=== PATIENT | female | born 1955 | race Caucasian/White ===

== ENCOUNTER 2024-04-10 07:18 | Day surgery (SDC) | payer OTHER ==
[2024-04-07 11:01] VITALS: BMI 32.3
[2024-04-10] MEDS ORDERED: VANCOMYCIN 1,000 MG VIAL (RESTRICTED TO ID ONLY) ONE ×2 (08:00→09:59)
[2024-04-10] MEDS ORDERED: TRANEXAMIC ACID 1000 MG/10 ML VIAL ONE ×2 (08:00→09:59)
[2024-04-10] MEDS ORDERED: MIDAZOLAM HCL 2 MG/2 ML SINGLE DOSE VIAL ONE (08:31)
[2024-04-10] MEDS ORDERED: DEXAMETHASONE SOD PHOSPHATE 10 MG/1 ML VIAL ONE (09:08)
[2024-04-10] MEDS ORDERED: ROPIVACAINE HCL/PF 100 MG/20 ML VIAL ONE (09:08)
[2024-04-10] MEDS ORDERED: CLINDAMYCIN 900 MG PREMIX IVPB 900 MG/50 ML BAG IVPB ONE (09:14)
[2024-04-10] MEDS ORDERED: PROPOFOL 20 ML ONE ×4 (09:34→11:10)
[2024-04-10] MEDS ORDERED: PHENYLEPHRINE HCL 10 MG/1 ML SINGLE DOSE VIAL ONE (09:59)
[2024-04-10] MEDS ORDERED: ONDANSETRON 4 MG/2 ML VIAL ONE (09:59)
[2024-04-10] MEDS: VANCOMYCIN 1,000 MG VIAL (RESTRICTED TO ID ONLY) IVPB ONE (11:00)
[2024-04-10] MEDS ORDERED: ONDANSETRON 4 MG/2 ML VIAL IVPUSH PRN ×2 (11:49→12:15)
[2024-04-10] MEDS: ACETAMINOPHEN 1000 MG/100 ML BAG IVPB ONE (12:05)
[2024-04-10] MEDS ORDERED: FENTANYL CITRATE/PF 50 MCG/ML VIAL ONE ×2 (12:12→12:17)
[2024-04-10] MEDS: LACTATED RINGERS SOLUTION 1,000 ML IV SCH (13:48)
[2024-04-10] MEDS: ACETAMINOPHEN 500 MG TABLET (FP) PO SCH (15:55)
[2024-04-10] MEDS: CLINDAMYCIN 900 MG PREMIX IVPB 900 MG/50 ML BAG IVPB SCH (18:30)
[2024-04-10] MEDS ORDERED: ACETAMINOPHEN 500 MG TABLET (FP) PO SCH (19:00)
[2024-04-10] MEDS: SODIUM CHLORIDE 1,000 ML IV SCH (19:32)
[2024-04-10] MEDS: DOCUSATE SODIUM 100 MG CAPSULE (FP) PO SCH (21:15)
[2024-04-11] MEDS: LEVOTHYROXINE NA 75 MCG TABLET (FP) PO SCH (06:02)
[2024-04-11] MEDS: oxyCODONE HCL 5 MG TABLET PO PRN ×3 (09:20→18:41)
[2024-04-11 12:26] VITALS: RESP 18
[2024-04-11] MEDS: ACETAMINOPHEN 1000 MG/100 ML BAG IVPB SCH (14:15)
[2024-04-12 10:54] VITALS: BP 154/75; PULSE 88; TEMP 98.2
== END 2024-04-12 16:09 | disposition home or self-care (01) ==
LOC: FASUSAT 07:18 → FASU 07:18 → FM/S 13:07 → FASUSAT 04-12 16:09
PROC: 0PSC04Z Reposition Right Humeral Head with Internal Fixation Device, Open Approach (ICD-10-PCS; principal; 2024-04-10 10:03)
DX: S42.201A Unspecified fracture of upper end of right humerus, initial encounter for closed fracture (principal); X58.XXXA Exposure to other specified factors, initial encounter; Y93.9 Activity, unspecified; Y92.9 Unspecified place or not applicable
CPT/HCPCS: 23630; C1713; 71101-TC-LT-FY; 73030-TC-RT-FY; 94760; J0131; J1100